=== PATIENT | male | born 1975 | race Hispanic/Latino ===

== ENCOUNTER → 2019-02-14 | Outpatient (REF) | payer OTHER ==
[~2019-02-14] MED LIST: FLON1SPR NARES; HYDR1SOL PO; KETO10TAB PO; No medication; PERC5TAB12 PO
[2019-02-14 13:05] LABS: INFLUENZA A AMPLIFICATION NEGATIVE (NEGATIVE); INFLUENZA B AMPLIFICATION NEGATIVE (NEGATIVE)
== END ==
LOC: M LAB REF 12:02
PROVIDERS: ATTEND Physician Assistant Medical
DX: J11.1 Influenza due to unidentified influenza virus with other respiratory manifestations (principal)

== ENCOUNTER 2019-02-15 15:23 | Emergency (ER) | payer OTHER ==
[~2019-02-15] VITALS: Ht 172.7 cm; Wt 90.9 kg
[~2019-02-15 15:23] MED LIST changes: -FLON1SPR NARES; -KETO10TAB PO; -PERC5TAB12 PO
[2019-02-15] MEDS ORDERED: MORPHINE 10 MG/ML 1ML VIAL (J2270) IM ONE (16:15)
--- NOTE | 2019-02-15 16:40 | REP ---
Clinical: Trauma. Technique: Frontal view of the chest with multiple views of the right hemithorax. Findings: Frontal view of the chest demonstrates no acute cardiopulmonary process. Multiple views of the the right hemithorax demonstrates no obvious acute rib fracture or pathology. Impression: No obvious right rib fracture. Electronically Signed by Micah Dong MD 02/15/2019 04:31 P
[2019-02-15] MEDS ORDERED: KETO10TAB PO (17:01)
[2019-02-15] MEDS ORDERED: PERC5TAB12 PO (17:01)
[2019-02-15] MEDS ORDERED: FLON1SPR NARES (17:03)
[2019-02-15 17:09] VITALS: BP 119/77
== END 2019-02-15 17:26 | disposition home or self-care (01) ==
LOC: M ED 15:23
DX: S20.219A Contusion of unspecified front wall of thorax, initial encounter (principal); X58.XXXA Exposure to other specified factors, initial encounter; Y92.89 Other specified places as the place of occurrence of the external cause; Y93.66 Activity, soccer; R05 Cough; J30.9 Allergic rhinitis, unspecified
CPT/HCPCS: 71101; 94010; 96372; 99283; J2270

== ENCOUNTER → 2021-01-14 | Outpatient (CLI) | payer SELFPAY ==
[~2021-01-14] MED LIST changes: +FLON1SPR NARES; +KETO10TAB PO; +PERC5TAB12 PO
== END ==
LOC: M LABSMTC 09:40
PROVIDERS: ATTEND Pediatrics
DX: Z11.52 Encounter for screening for COVID-19 (principal)